=== PATIENT | female | born 1950 | race Caucasian/White ===

== ENCOUNTER 2016-12-14 15:12 | Emergency (ER) | payer MEDICARE, OTHER ==
[~2016-12-14 15:12] MED LIST: ACETAMINOPHEN325 M2 PO; ACTOPLUS MET 151 TAB PO; ACTOS15 MG PO; ALDACTONE25 M1 PO; ALDACTONE25 MG PO; ALDACTONE50 M1 PO; ASPIRIN81 M1 PO; ASPIRIN81 MG PO; ATIVAN1 M1 PO; ATIVAN1 M2 PO; ATIVAN1 MG PO; BABY ASPIRIN81 MG PO; BYDUREON2 M1; BYETTA10 MCG/0.0 SQ; C-PAP; CALTRATE 600 +1 EAC2 PO; CELEXA40 M2 PO; CELEXA40 MG PO; CITALOPRAM HBR40 M1 PO; COUMADIN5 MG PO; COUMADIN7.5 MG PO; CYMBALTA30 M1 PO; GLIPIZIDE10 M2 PO; GLUCOPHAGE1000 MG PO; GLUCOPHAGE500 MG PO; HYDROCODON-ACE1 EAC1 PO; JANUMET XR 50-1 EAC1 PO; KEFLEX500 M1 PO; KEFLEX500 MG PO; LANTUS100 UNITS/ SC; LEVAQUIN500 MG PO; LISINOPRIL10 M1 PO; LORATADINE10 M3 PO; LORTAB 7.5/5001 EA PO; LYRICA100 MG PO; LYRICA200 M1 PO; METFORMIN HCL500 M2 PO; METFORMIN HCL500 M3 PO; METOPROLOL TART25 M1 PO; METOPROLOL TART25 MG PO; MINOCYCLINE HC100 MG PO; MULTI VITAMIN1 EAC1 PO; NEXIUM40 M1 PO; NORCO 5/3251 TAB PO; NORVASC5 MG PO; OMEGA 31 CAP PO; PERCOCET 5MG/AP1 TAB PO; PRISTIQ ER100 MG PO; PRISTIQ100 MG PO; PRISTIQ50 MG PO; PROBIOTIC1 EAC1 PO; PROTONIX40 MG PO; SENOKOT-S TABLE1 TAB PO; SIMVASTATIN40 MG PO; SPIRONOLACTONE25 M1 PO; SPIRONOLACTONE25 MG PO; TIKOSYN0.25 MG PO; TIKOSYN0.5 MG PO; TYLENOL325 M2 PO; VITAMIN D31000 UNI3 PO; VITAMIN D3400 UNI2 PO; VITAMIN D50000 UNIT PO; VITAMIN E400 UNI4 PO; XARELTO20 MG PO; ZOCOR20 M1 PO; ZOCOR40 MG PO; ZYRTEC10 M7 PO
[2017-01-23] MEDS ORDERED: IRON325 M3 PO (07:21)
[2017-01-23] MEDS ORDERED: VIGAMOX3 M1 OP (07:22)
[2017-01-23] MEDS ORDERED: ARICEPT10 M2 PO (07:22)
[2017-01-23] MEDS ORDERED: MACROBID 100 M100 M1 PO (07:23)
[2017-01-23] MEDS ORDERED: NOVOLOG FL100 UNIT/2 SC (09:32)
[2017-01-23] MEDS ORDERED: VENLAFAXINE HC150 M2 PO (09:36)
[2017-01-23] MEDS ORDERED: TRESIBA FL200 UNIT/1 SC (09:37)
[2017-01-24] MEDS ORDERED: LEVAQUIN750 M1 PO (11:55)
[2017-01-24] MEDS ORDERED: STOP THE FOLLOWING: (11:56)
[2017-01-28] MEDS ORDERED: VIGAMOX3 M1 OP (11:09)
[2017-03-21] MEDS ORDERED: KEFLEX500 M4 PO (14:59)
== END 2016-12-14 17:26 ==
LOC: EDMED 15:12
DX: S09.90XA Unspecified injury of head, initial encounter (principal); S16.1XXA Strain of muscle, fascia and tendon at neck level, initial encounter; S39.012A Strain of muscle, fascia and tendon of lower back, initial encounter; E11.9 Type 2 diabetes mellitus without complications; E78.5 Hyperlipidemia, unspecified; Z86.73 Personal history of transient ischemic attack (TIA), and cerebral infarction without residual deficits; Z79.82 Long term (current) use of aspirin; Z79.899 Other long term (current) drug therapy; W01.0XXA Fall on same level from slipping, tripping and stumbling without subsequent striking against object, initial encounter; Y92.019 Unspecified place in single-family (private) house as the place of occurrence of the external cause